=== PATIENT | female | born 1945 | race Two or more races ===

== ENCOUNTER 2018-01-27 07:55 | Outpatient (CLI) | payer OTHER | END 2018-01-27 09:00 | disposition home or self-care (01) | LOC: LAB 07:55 | DX: R13.19 Other dysphagia (principal); Z51.81 Encounter for therapeutic drug level monitoring ==

== ENCOUNTER 2018-01-28 07:11 | Outpatient (CLI) | payer OTHER | END 2018-01-28 10:43 | disposition home or self-care (01) | LOC: TOM 07:11 | DX: R13.19 Other dysphagia (principal) | CPT/HCPCS: 74178; Q9965 ==

== ENCOUNTER 2018-05-22 08:27 | Outpatient (CLI) | payer OTHER | END 2018-05-22 08:29 | disposition home or self-care (01) | LOC: SONOGRAMA 08:27 | DX: N13.30 Unspecified hydronephrosis (principal) ==

== ENCOUNTER 2018-09-12 07:35 | Outpatient (CLI) | payer OTHER ==
[~2018-09-12] VITALS: Ht 152.4 cm; Wt 55.3 kg
== END 2018-09-12 07:50 | disposition home or self-care (01) ==
LOC: OFIC 805 07:35
DX: H61.23 Impacted cerumen, bilateral (principal); H60.593 Other noninfective acute otitis externa, bilateral

== ENCOUNTER 2019-04-02 13:31 | Outpatient (CLI) | payer OTHER | END 2019-04-02 13:55 | disposition home or self-care (01) | LOC: MRI 13:31 | DX: M25.511 Pain in right shoulder (principal); M25.561 Pain in right knee; M25.562 Pain in left knee | CPT/HCPCS: 73721 ==

== ENCOUNTER → 2019-04-09 | Emergency (ER) | payer OTHER | END | disposition left against medical advice (07) | LOC: ER 08:51 | DX: Z53.20 Procedure and treatment not carried out because of patient's decision for unspecified reasons (principal) ==

== ENCOUNTER 2019-04-10 07:21 | Outpatient (CLI) | payer OTHER ==
[~2019-04-10] VITALS: Ht 152.4 cm; Wt 56.7 kg
== END 2019-04-10 07:42 | disposition home or self-care (01) ==
LOC: OFIC 805 07:21
DX: H61.23 Impacted cerumen, bilateral (principal); H60.8X3 Other otitis externa, bilateral; J31.2 Chronic pharyngitis; K21.0 Gastro-esophageal reflux disease with esophagitis; R49.0 Dysphonia

== ENCOUNTER 2019-06-30 07:30 | Outpatient (CLI) | payer OTHER | END 2019-06-30 07:34 | disposition home or self-care (01) | LOC: SONOGRAMA 07:30 → MAMO-SONO 09:45 | DX: M25.512 Pain in left shoulder (principal) ==

== ENCOUNTER 2019-07-16 08:00 | Outpatient (CLI) | payer OTHER | END 2019-07-16 09:00 | disposition home or self-care (01) | LOC: NUCLEAR 08:00 | DX: I10 Essential (primary) hypertension (principal); E78.2 Mixed hyperlipidemia; R00.1 Bradycardia, unspecified ==

== ENCOUNTER → 2019-08-27 | Outpatient (CLI) | payer OTHER | END | disposition home or self-care (01) | LOC: TOM 08:30 | DX: D37.032 Neoplasm of uncertain behavior of the submandibular salivary glands (principal); K11.5 Sialolithiasis ==

== ENCOUNTER 2019-10-27 12:20 | Outpatient (CLI) | payer OTHER | END 2019-10-27 12:30 | disposition home or self-care (01) | LOC: RAD 12:20 | DX: I10 Essential (primary) hypertension (principal) ==

== ENCOUNTER → 2020-03-28 | Outpatient (CLI) | payer OTHER | END | disposition home or self-care (01) | LOC: TOM 08-17 08:30 → SONOGRAMA 07:51 | DX: N39.0 Urinary tract infection, site not specified (principal) ==

== ENCOUNTER 2020-05-19 11:39 | Emergency (ER) | payer OTHER ==
[~2020-05-19] VITALS: Ht 157.5 cm; Wt 59.9 kg
[2020-05-19] MEDS ORDERED: COZAAR100 MG (12:13)
[2020-05-19] MEDS ORDERED: EVISTA60 MG (12:14)
[2020-05-19] MEDS ORDERED: SYNTHROID50 MCG (12:14)
[2020-05-19] MEDS ORDERED: CRESTOR40 MG (12:14)
== END 2020-05-19 15:17 | disposition home or self-care (01) ==
LOC: ER 11:39
DX: I16.1 Hypertensive emergency (principal); I10 Essential (primary) hypertension

== ENCOUNTER 2020-06-26 09:46 | Inpatient (IN) | payer OTHER ==
[~2020-06-26] VITALS: Ht 157.5 cm; Wt 59.9 kg
[~2020-06-26 09:46] MED LIST: COZAAR100 MG; CRESTOR40 MG; EVISTA60 MG; SYNTHROID50 MCG
[2020-06-27] MEDS ORDERED: AMLODIPINE BESYL5 MG (10:20)
[2020-06-27] MEDS ORDERED: REFRESH TEARS15 ML (10:20)
[2020-06-27] MEDS ORDERED: ESTRADIOL42.5 GM (10:20)
== END 2020-07-05 07:36 | disposition designated cancer center or children's hospital (05) | DRG 281 ==
LOC: ER 09:46 → MEDI 18:51 → SEC-K 21:26 → MEDI 06-27 00:03 → MEDJ 07-01 09:53
PROVIDERS: ADMIT Internal Medicine; ATTEND Internal Medicine
PROC: 4A12X4Z Monitoring of Cardiac Electrical Activity, External Approach (ICD-10-PCS; principal; 2020-06-27)
PROC: B24BZZZ Ultrasonography of Heart with Aorta (ICD-10-PCS; 2020-06-27)
PROC: BT43ZZZ Ultrasonography of Bilateral Kidneys (ICD-10-PCS; 2020-06-27)
PROC: B345ZZZ Ultrasonography of Bilateral Common Carotid Arteries (ICD-10-PCS; 2020-06-27)
PROC: B348ZZZ Ultrasonography of Bilateral Internal Carotid Arteries (ICD-10-PCS; 2020-06-27)
PROC: 3E0F7SF Introduction of Other Gas into Respiratory Tract, Via Natural or Artificial Opening (ICD-10-PCS; 2020-06-27)
PROC: 4A12XM4 Monitoring of Cardiac Stress, External Approach (ICD-10-PCS; 2020-06-28)
PROC: 3E073KZ Introduction of Other Diagnostic Substance into Coronary Artery, Percutaneous Approach (ICD-10-PCS; 2020-06-28)
DX: I21.4 Non-ST elevation (NSTEMI) myocardial infarction (principal); I16.1 Hypertensive emergency; N13.39 Other hydronephrosis; I10 Essential (primary) hypertension; K21.9 Gastro-esophageal reflux disease without esophagitis; Z20.828 Contact with and (suspected) exposure to other viral communicable diseases; E78.49 Other hyperlipidemia

== ENCOUNTER → 2020-07-07 | Outpatient (CLI) | payer OTHER ==
[~2020-07-07] MED LIST changes: +AMLODIPINE BESYL5 MG; +ESTRADIOL42.5 GM; +REFRESH TEARS15 ML
== END | disposition home or self-care (01) ==
LOC: OFIC 805 12:45
PROVIDERS: ATTEND Otolaryngology
DX: E04.1 Nontoxic single thyroid nodule (principal)

== ENCOUNTER 2020-09-06 15:58 | Outpatient (CLI) | payer OTHER | END 2020-09-06 17:08 | disposition home or self-care (01) | LOC: RAD 15:58 | PROVIDERS: ATTEND Pediatrics | DX: M24.111 Other articular cartilage disorders, right shoulder (principal); M25.511 Pain in right shoulder; M11.211 Other chondrocalcinosis, right shoulder; M79.631 Pain in right forearm; M77.8 Other enthesopathies, not elsewhere classified ==

== ENCOUNTER → 2020-09-19 | Outpatient (CLI) | payer OTHER | END | disposition home or self-care (01) | LOC: OFIC 805 09-06 10:00 | PROVIDERS: ATTEND Otolaryngology | DX: H90.3 Sensorineural hearing loss, bilateral (principal); H61.23 Impacted cerumen, bilateral ==

== ENCOUNTER 2020-12-06 07:07 | Outpatient (CLI) | payer OTHER | END 2020-12-06 07:18 | disposition home or self-care (01) | LOC: SONOGRAMA 07:07 | PROVIDERS: ATTEND Internal Medicine Gastroenterology | DX: N28.89 Other specified disorders of kidney and ureter (principal); R10.84 Generalized abdominal pain ==

== ENCOUNTER 2021-03-06 08:00 | Outpatient (CLI) | payer OTHER | END 2021-03-06 08:30 | disposition home or self-care (01) | LOC: PPH VACUNA 08:00 | DX: Z23 Encounter for immunization (principal) ==

== ENCOUNTER 2021-03-23 08:00 | Outpatient (CLI) | payer OTHER | END 2021-03-23 08:30 | disposition home or self-care (01) | LOC: PPH VACUNA 08:00 | DX: Z23 Encounter for immunization (principal) ==

== ENCOUNTER 2021-08-18 08:25 | Outpatient (CLI) | payer OTHER | END 2021-08-18 10:05 | disposition home or self-care (01) | LOC: TOM 08:25 | PROVIDERS: ATTEND Otolaryngology | DX: R22.1 Localized swelling, mass and lump, neck (principal); D10.1 Benign neoplasm of tongue | CPT/HCPCS: 70491; Q9965 ==

== ENCOUNTER 2021-08-21 07:42 | Outpatient (CLI) | payer OTHER | END 2021-08-21 07:45 | disposition home or self-care (01) | LOC: SONOGRAMA 07:42 | PROVIDERS: ATTEND Family Medicine | DX: Q61.01 Congenital single renal cyst (principal); K76.0 Fatty (change of) liver, not elsewhere classified ==

== ENCOUNTER 2021-10-12 08:00 | Outpatient (CLI) | payer OTHER | END 2021-10-12 08:30 | disposition home or self-care (01) | LOC: PPH VACUNA 08:00 | PROVIDERS: ATTEND Emergency Medicine Pediatric Emergency Medicine | DX: Z23 Encounter for immunization (principal) ==